=== PATIENT | female | born 1985 | race American Indian/Alaskan Native ===

== ENCOUNTER 2022-03-01 05:38 | Inpatient (IN) | payer OTHER ==
[2022-02-27 13:32] LABS: Hematocrit 33.4 % (30.3-42.9); Hemoglobin 11.1 gm/dl (10.1-14.3); Mean Corpuscular HGB Conc 33 % (30-34); Mean Corpuscular Volume 86 fl (79-97); Platelet Count 338 K/mm3 (140-440); Red Cell Distribution Width 15.4 % (13.2-15.2)
[~2022-03-01 05:38] MED LIST: BICITRA ORAL LIQD 30ML PO ONE; FAMOTIDINE 20 MG/2 ML INJ IV ONE; LACTATED RINGERS 1,000 ML IV SCH; METOCLOPRAMIDE 10 MG/2 ML INJ IV ONE; OXYTOCIN DRIP 30 UNITS/500 ML BAG IV SCH
--- NOTE | 2022-03-01 12:17 | Ultrasound Report ---
US OB LIMITED INDICATION: presentation. COMPARISON: None available. FINDINGS: A single live intrauterine is seen in transverse position with head to the maternal right. heart rate measures 149 bpm. No acute findings are identified by limited imaging. There is an i ncidental lower uterine segment probable fibroid measuring 10.1 x 7.0 x 8.9 cm. IMPRESSION: 1. Single live intrauterine in transverse presentation with head to the maternal righ t. 2. No acute findings. 3. Incidental probable uterine fibroid as above. Signer Name: Omari Scanlon MD Signed: 03/01/2022 12:12 PM Workstation Name: [id number]
--- NOTE | 2022-03-01 12:39 | History and Physical Report ---
History of Present Illness Date of examination: 03/01/22 Date of admission: 03/01/22 09:34 Chief complaint: Here for C/S History of present illness: Patient is a at 39w4d presenting for primary section secondary to breech presentation. Voices no complaints. +FM. Denies contractions, leakage of fluid, and vaginal bleeding. Past History Past Medical History: other (Anemia) Past Surgical History: other (gastric bypass) Family/Genetic History: none Social history: - Obstetrical History Expected Date of Delivery: 03/04/22 Actual Gestation: 39 Week(s) 4 Day(s) : 2 Para: 0 Hx # Term Pregnancies: 0 Number of Pregnancies: 0 Spontaneous Abortions: 1 Induced : 0 Number of Living Children: 0 Medications and Allergies Allergies Allergy/AdvReac Type Severity Reaction Status Date / Time No Known Allergies Allergy Unverified 02/21/22 18:40 Home Medications Medication Instructions Recorded Confirmed Last Taken Type Albuterol Sulfate [Proventil Hfa] 2 puff IH Q4H PRN 02/21/22 02/21/22 Unknown History Aspirin [Adult Aspirin] 81 mg PO DAILY 02/21/22 02/21/22 Unknown History Ferrous Sulfate [Feosol] 325 mg PO QDAY 02/21/22 02/21/22 Unknown History Folic Acid 1 mg PO DAILY 02/21/22 02/21/22 Unknown History Vit-Fe Fumar-FA [ 1 tab PO QDAY 02/21/22 02/21/22 Unknown History Vitamin] Active Meds: Active Medications Lactated Ringer's (Lactated Ringers) 1,000 mls @ 2,250 mls/hr IV PREOP AYSHA Stop: 03/01/22 20:57 Oxytocin/Sodium Chloride (Pitocin/Ns 30 Unit/500ml) 30 units in 500 mls @ 0 mls/hr IV TITR AYSHA; Protocol Cefazolin Sodium 3 gm/ Sodium (Chloride) 100 mls @ 100 mls/30 min IV PREOP NR; Protocol Stop: 03/10/22 23:59 Review of Systems All systems: negative - Vital Signs Vital signs: Vital Signs Temp Pulse Resp BP Pulse Ox 98.7 F 84 16 122/81 98 02/27/22 13:15 02/27/22 13:15 02/27/22 13:15 02/27/22 13:15 02/27/22 13:15 Temp Pulse Resp BP Pulse Ox 98.7 F 77 18 127/77 100 03/01/22 11:49 03/01/22 12:33 03/01/22 11:49 03/01/22 11:49 03/01/22 12:33 - Physical Exam Cardiovascular: Regular rate Lungs: Positive: Normal air movement Abdomen: Positive: soft Uterus: Positive: other (Gravid) Extremities: Positive: normal - Obstetrical FHR: category 1 Uterine Contraction Monitor Mode: External Results Result Diagrams: 02/27/22 13:15 All other labs normal. Assessment and Plan Patient s/p U/S and fetus transverse with head to maternal right Discussed will proceed with primary section Risks previously reviewed including pain, bleeding, infection, damage to surrounding tissues and structures, injury to baby, need for further procedures. Procedure and blood consents previously signed. Preop Hemoglobin 11.1 Ancef 3 g for preoperative antibiotics To OR for PCS - Patient Problems (1) 39 weeks gestation of Current Visit: Yes Status: Acute (2) malpresentation Current Visit: Yes Status: Acute (3) Fibroid uterus Current Visit: Yes Status: Acute
--- NOTE | 2022-03-01 12:49 | Anesthesia Day of Surgery ---
Anesthesia Day of Surgery - Day of Surgery Patient Examined: Yes Patient H&P Reviewed: Yes Patient is NPO: Yes Beta Blockers: No Cardiac Clearance: No Pulmonary Clearance: No Rey's Test: N/A
[2022-03-01] MEDS ORDERED: NalbUPHINE 10 MG/1 ML INJ IV PRN (12:50)
--- NOTE | 2022-03-01 12:50 | Anesthesia Consultation ---
Anesthesia Consult and Med Hx Date of service: 03/01/22 - Airway Anesthetic Teeth Evaluation: Good ROM Head & Neck: Adequate Mental/Hyoid Distance: Adequate Mallampati Class: Class I Intubation Access Assessment: Probably Good - Pulmonary Exam CTA: Yes - Cardiac Exam Cardiac Exam: RRR - Pre-Operative Health Status ASA Pre-Surgery Classification: ASA2 Proposed Anesthetic Plan: Spinal Nerve Block: TAP - Pulmonary Hx Smoking: No Hx Asthma: Yes (Albuterol for wheezing) Hx Sleep Apnea: No - Cardiovascular System Hx Hypertension: No Hx Heart Attack/AMI: No Hx Angina: No - Central Nervous System Hx Seizures: No Hx Psychiatric Problems: No - Gastrointestinal Hx Gastroesophageal Reflux Disease: No - Endocrine Hx Renal Disease: No Hx Liver Disease: No Hx Insulin Dependent Diabetes: No Hx Non-Insulin Dependent Diabetes: No Hx Hypothyroidism: No Hx Hyperthyroidism: No - Hematic Hx Anemia: No Hx Sickle Cell Disease: No - Other Systems Hx Alcohol Use: No Hx Cancer: No Hx Obesity: Yes - Additional Comments Anesthesia Medical History Comments: Gastric bypass
[2022-03-01] MEDS ORDERED: NALOXONE 0.4 MG/1 ML INJ IV PRN ×2 (13:00→17:27)
[2022-03-01] MEDS ORDERED: PROMETHAZINE 25 MG TAB PO PRN (13:00)
[2022-03-01] MEDS ORDERED: ONDANSETRON 4 MG/2 ML INJ IV PRN ×2 (13:00→17:27)
[2022-03-01] MEDS ORDERED: PROMETHAZINE 25 MG RECT SUPP PR PRN (13:00)
[2022-03-01] MEDS ORDERED: diphenhydrAMINE 50 MG/ML VIAL IV PRN (13:00)
[2022-03-01] MEDS ORDERED: BUPIVACAINE/PF (0.5%) 5 MG/1 ML 30 ML VIAL INFILTRATI ONE (14:03)
[2022-03-01] MEDS ORDERED: dexAMETHasone 20 MG/5 ML VIAL ONE (14:03)
[2022-03-01] MEDS ORDERED: ONDANSETRON 4 MG/2 ML INJ ONE (14:03)
[2022-03-01] MEDS ORDERED: KETOROLAC 30 MG/1 ML INJ ONE (14:03)
[2022-03-01] MEDS ORDERED: FAMOTIDINE 20 MG/2 ML INJ IV ONE (14:38)
[2022-03-01] MEDS ORDERED: BICITRA ORAL LIQD 30ML ONE (14:38)
[2022-03-01] MEDS ORDERED: METOCLOPRAMIDE 10 MG/2 ML INJ ONE (14:38)
[2022-03-01] MEDS ORDERED: ceFAZolin/Water 2 GM/20 ML 0 GM/0 ML SYRINGE IV ONE (14:39)
[2022-03-01] MEDS ORDERED: propofoL 200 MG/20 ML VIAL IV ONE (15:42)
[2022-03-01] MEDS ORDERED: SUCCINYLCHOLINE CHLORIDE 200 MG/10 ML INJ MDV ONE (15:42)
[2022-03-01] MEDS ORDERED: SODIUM CHLORIDE 0.9% IRR 1,500 ML BOTTLE IR ONE (15:50)
[2022-03-01] MEDS ORDERED: WATER FOR IRRIG STERILE 1,500 ML BOTTLE IR ONE (15:50)
[2022-03-01] MEDS ORDERED: METHYLERGONOVINE MALEATE 0.2 MG/ML VIAL IM ONE (16:03)
[2022-03-01] MEDS ORDERED: SODIUM CHLORIDE 0.9% 500 ML 500 ML IV ONE (16:11)
[2022-03-01] MEDS ORDERED: oxyCODONE /ACETAMINOPHEN 5-325MG TAB PO PRN (17:27)
[2022-03-01] MEDS ORDERED: WITCH HAZEL/ GLYCERIN PAD TP PRN (17:27)
[2022-03-01] MEDS ORDERED: LANOLIN/ZINC/DIMETHICONE (LANSINOH) 7 GM TP PRN (17:27)
[2022-03-01] MEDS ORDERED: SIMETHICONE 80 MG CHEW TAB PO PRN (17:27)
--- NOTE | 2022-03-01 17:46 | Operative Report ---
Operative Report Operative Report: Date of Procedure: February 26, 2022 Preoperative diagnosis: IUP @39 weeks, malpresentation, uterine fibroid Postoperative diagnosis: same, s/p stat section Procedure: Primary low transverse section Surgeon: Patricia Lemus MD Anesthesia: Spinal converted to GETA Complications: hemorrhage EBL: 2730 ml IV Fluids: 1700 ml ; 1 unit packed red blood cells UOP: 50 ml, clear urine at the end of procedure Indications: malpresentation Findings: 3430 g female infant in breech presentation with Apgars 3 & 8 Amniotic fluid clear Fallopian tubes normal in appearance bilaterally Ovaries normal in appearance bilaterally Procedure: The patient was taken to the operating room where spinal anesthesia was placed. Patient then complained of shortness of breath oxygen saturations noted to be in the 60s. High spinal suspected decision was made to convert to general anesthesia. 3 g Ancef was given prior to the procedure. She was then prepared with Betadine splash and draped in the usual sterile fashion in the dorsal supine position with a leftward tilt. A Pfannenstiel skin incision was made with the scalpel and carried and carried down to the fascia. The fascia was incised. The rectus muscles were then in the midline, and the peritoneum entered bluntly. The uterus was visualized and a fibroid was noted at the lower uterine segment. The decision was made to proceed with a high transverse uterine incision which was made with the scalpel. The infant was delivered via breech position. The was stimulated as the cord clamped and cut. The infant was handed off to the waiting pediatricians.The placenta was then removed; the uterus was cleared of all clots and debris. An Ramirez retractor was placed into the abdomen. The uterus was noted to be boggy and hemorrhage noted. The uterine incision was repaired with 0 vicryl in a running locked fashion to obtain ehemostasis. An imbrication layer was done. Multiple areas of bleeding were noted and multiple figure of eight sutures were placed giving excellent hemostasis. Surgicel was placed over the hysterotomy. The rectus muscle was reapproximated with 2-0 vicryl. The fascia was reapproximated with 0 vicryl in a running fashion. Subcutaneous layer reapproximated with interrupted sutures of 0 vicryl. The skin was closed with 4- 0 monocryl subcuticular stitch and the incision sealed with Dermabond. The patient tolerated the procedure well. Sponge, lap, needle counts correct X 2. The patient was taken to the recovery room in a stable condition.
--- NOTE | 2022-03-01 17:51 | Progress Note ---
Spinal Anesthesia Block - Spinal Anesthesia Block Start Time: 15:36 Stop Time: 15:42 Performed by:: BERNARDO PECK Procedure: Spinal anesthesia block is being performed for [c/s]. H&P, labs have been reviewed. Patient's questions and concerns have been answered. Informed consent has been performed. Timeout has was performed. Patient in sitting position on side of bed. Sterile prep and drape was performed. 3 mL 1% lidocaine skin wheal at L [3]-L [4]. Needle introducer advanced. 24-gauge spinal needle advanced, [+] CSF [-] blood. [Marcaine 10mg Precedex 5mcg] Spinal dose was given. All needles removed. Patient tolerated procedure well.
[2022-03-01] MEDS ORDERED: OXYTOCIN DRIP 30 UNITS/500 ML BAG IV SCH (18:00)
[2022-03-01] MEDS: HYDROmorphone 1 MG/1 ML INJ IV PRN (18:17)
[2022-03-01 19:11] LABS: Hematocrit 33.7 % (30.3-42.9); Hemoglobin 10.8 gm/dl (10.1-14.3)
[2022-03-01] MEDS: MORPHINE 4 MG/1 ML INJ IV PRN (21:22)
[2022-03-01] MEDS ORDERED: LACTATED RINGERS 1,000 ML IV SCH (22:00)
[2022-03-02] MEDS: MORPHINE 4 MG/1 ML INJ IV PRN ×2 (01:42→09:02)
[2022-03-02] MEDS: HYDROmorphone 1 MG/1 ML INJ IV PRN (04:40)
[2022-03-02 05:14] LABS: Hematocrit 31.4 % (30.3-42.9); Hemoglobin 10.4 gm/dl (10.1-14.3)
--- NOTE | 2022-03-02 08:48 | Progress Note ---
Assessment and Plan A: 36 y.o. s/p primary , POD #1. - Patient Problems (1) delivery delivered Current Visit: Yes Status: Acute Plan to address problem: Continue with care. Advance diet as tolerated. Encourage ambulation. Encourage IS use. Percocet increased to 2 tablets when pt is able to take PO pain medication. RN to administer pain medication IV as of this note. If patient remains stable and pain is well controlled can be discharged home on 03/02. Subjective - Subjective Date of service: 03/02/22 Principal diagnosis: s/p primary , PPH Interval history: Pt states that she feels like she is getting an yeast infection d/t antibiotic administration. Pt also states that she is having some pain and feels dizzy when ambulating. Discussed with patient the need to ask for assistance when getting out of bed and when walking. RN taking care of patient serna of need for pain me dication. Patient reports: dizzy ambulation, pain poorly controlled, other (Yeast infection) : doing well Objective - Vital Signs Latest vital signs: Vital Signs Temp Pulse Resp BP BP Pulse Ox Pulse Ox 03/02/22 05:10 18 03/02/22 04:45 98.9 F 87 18 139/82 97 03/02/22 04:40 18 03/02/22 01:42 18 03/02/22 00:40 97.9 F 92 H 18 134/85 100 03/01/22 21:22 18 03/01/22 19:47 98.0 F 86 18 146/88 98 03/01/22 19:30 98 03/01/22 18:50 97.7 F 89 20 133/78 99 03/01/22 18:35 94 H 20 126/82 99 03/01/22 18:20 90 22 130/82 99 03/01/22 18:05 99 H 22 119/74 99 03/01/22 17:50 102 H 22 119/77 98 03/01/22 17:40 100 H 24 125/76 98 03/01/22 17:35 102 H 20 126/78 98 03/01/22 17:34 97.7 F 99 H 20 132/82 03/01/22 14:34 95 H 99 03/01/22 14:29 89 99 03/01/22 14:24 86 98 03/01/22 14:19 85 100 03/01/22 14:14 84 100 03/01/22 14:09 81 100 03/01/22 14:04 79 99 03/01/22 13:59 87 98 03/01/22 13:54 87 99 03/01/22 13:49 84 100 03/01/22 13:43 85 100 03/01/22 13:38 82 100 03/01/22 13:33 77 100 03/01/22 13:28 82 98 03/01/22 13:25 75 128/80 03/01/22 13:23 78 98 03/01/22 13:18 82 97 03/01/22 13:13 85 99 03/01/22 13:08 75 100 03/01/22 13:05 98 03/01/22 13:03 81 98 03/01/22 12:58 84 97 03/01/22 12:53 80 98 03/01/22 12:48 90 97 03/01/22 12:43 74 97 03/01/22 12:38 83 99 03/01/22 12:33 77 100 03/01/22 12:28 81 100 03/01/22 12:23 78 99 03/01/22 12:18 87 99 03/01/22 12:13 84 99 03/01/22 12:08 81 100 03/01/22 12:03 85 99 03/01/22 11:58 98 H 100 03/01/22 11:53 96 H 100 03/01/22 11:49 98.7 F 91 H 18 127/77 99 03/01/22 11:48 90 100 03/01/22 11:44 90 127/77 03/01/22 11:43 94 H 99 Intake and Output 03/01/22 03/02/22 03/02/22 22:59 06:59 14:59 Intake Total 1900 Output Total 200 800 Balance 1700 -800 Intake: IV 1900 Output: Urine 200 800 Indwelling Catheter 800 Other: Total, Output Amount 300 Estimated Blood Loss 2,703 - Exam Cardiovascular: Present: Regular rate Lungs: Present: Normal air movement Abdomen: Present: normal appearance, soft, other (Hypoactive bowel sounds. ) Vulva: both: normal Uterus: Present: normal, firm Extremities: Present: normal Incision: Present: normal, dry, intact, other Comments: No s/sx of yeast infection seen. - Labs Labs: Abnormal lab results 03/01/22 Range/Units 12:10 Crossmatch See Detail
[2022-03-02] MEDS: ceFAZolin/NS 1 GM/50 ML 1 GM/50 ML BAG IV SCH ×2 (09:02)
[2022-03-02] MEDS: IBUPROFEN 800 MG TAB PO SCH ×7 (09:02→23:19)
--- NOTE | 2022-03-02 10:00 | Post Anesthesia Evaluation ---
- Post Anesthesia Evaluation Patient Participated: Yes Airway Patent: Yes Stable Respiratory Function: Yes Nausea/Vomiting: No Temp > 96.8F: Yes Pain Manageable: Yes Adequeate Hydration: Yes Anesthesia Complications: No Block Receding Appropriately: Yes Patient on Ventilator: No
[2022-03-02] MEDS ORDERED: FLUCONAZOLE 200 MG TAB PO ONE (13:42)
[2022-03-02] MEDS: oxyCODONE /ACETAMINOPHEN 5-325MG TAB PO PRN ×2 (13:48→18:55)
[2022-03-03] MEDS: oxyCODONE /ACETAMINOPHEN 5-325MG TAB PO PRN ×4 (02:01→21:29)
[2022-03-03] MEDS: IBUPROFEN 800 MG TAB PO SCH ×4 (05:43→23:49)
--- NOTE | 2022-03-03 13:27 | Discharge Summary ---
Providers - Providers Date of Admission: 03/01/22 09:34 Date of discharge: 03/03/22 Attending physician: PIOTR RAMOS MD Primary care physician: PIOTR RAMOS MD Hospitalization Reason for admission: section, IUP at term Delivery: Procedure: section Procedure details: See dictated operative note for details Episiotomy: none Laceration: none Incision: normal, dry, intact Other procedures: none complications: none Discharge diagnosis: IUP at term delivered baby: female Hospital course: Patient was admitted for primary. Patient underwent the procedure without complications. Her post operative course was benign she was afebrile throughout. Patient postoperative day 1 hematocrit was in an acceptable range. Patient had no orthostatic symptoms. Patient was tolerating regular diet and voiding without difficulty at time of discharge. Patient incision was healing well without evidence of infection. Patient plans to breast-feed and desires no contraceptive due to same-sex marriage. Condition at discharge: Good Disposition: 01 HOME / SELF CARE / HOMELESS - Discharge Diagnoses (1) 39 weeks gestation of Status: Acute (2) delivery delivered Status: Acute (3) malpresentation Status: Acute (4) Fibroid uterus Status: Acute Plan - Discharge Medications Prescriptions: Docusate Sodium [Colace] 100 mg PO BID #60 capsule Ferrous Sulfate [Feosol 325 MG tab] 325 mg PO QDAY #30 tablet Ibuprofen [Motrin 800 MG tab] 800 mg PO Q8HR #30 tablet oxyCODONE /ACETAMINOPHEN [Percocet 5/325] 1 tab PO Q6HR PRN #20 tablet PRN Reason: Pain Vit-Fe Fumar-FA [ Vitamin] 1 tab PO QDAY #30 tablet - Provider Discharge Summary Activity: routine, no sex for 6 weeks, no strenuous exercise Diet: routine Instructions: routine Additional instructions: [] Smoking cessation referral if applicable(refer to patient education folder for contact #) [] Refer to [facility] Booklet Call your doctor immediately for: * Fever > 100.5 * Heavy vaginal bleeding ( >1 pad per hour) * Severe persistent headache * Shortness of breath * Reddened, hot, painful area to leg or breast * Drainage or odor from incision. * Keep incision clean and dry at all times and follow doctor's instructions regarding bathing/showering - Follow up plan Follow up: PIOTR RAMOS MD [Primary Care Provider] - 7 Days
[2022-03-04] MEDS: IBUPROFEN 800 MG TAB PO SCH ×2 (05:46→13:00)
[2022-03-04] MEDS: oxyCODONE /ACETAMINOPHEN 5-325MG TAB PO PRN (09:40)
--- NOTE | 2022-03-04 12:05 | Event Note ---
Date: 03/04/22 Patient is discharged with post phone yesterday due to requiring observation for elevated bilirubin. Will discharge today
[2022-03-04 19:13] VITALS: BP 123/82
== END 2022-03-04 14:55 | disposition home or self-care (01) | DRG 765 ==
LOC: APU 09:34 → OB 20:34
PROVIDERS: ADMIT Student in an Organized Health Care Education/Training Program; ATTEND Student in an Organized Health Care Education/Training Program
PROC: 10D00Z1 Extraction of Products of Conception, Low, Open Approach (ICD-10-PCS; principal; 2022-02-26)
PROC: 30233N1 Transfusion of Nonautologous Red Blood Cells into Peripheral Vein, Percutaneous Approach (ICD-10-PCS; 2022-03-01)
DX: O32.1XX0 Maternal care for breech presentation, not applicable or unspecified (principal); O72.1 Other immediate postpartum hemorrhage; Z3A.39 39 weeks gestation of pregnancy; Z37.0 Single live birth; Z20.822 Contact with and (suspected) exposure to COVID-19; O34.13 Maternal care for benign tumor of corpus uteri, third trimester; D25.9 Leiomyoma of uterus, unspecified; O99.52 Diseases of the respiratory system complicating childbirth; J45.909 Unspecified asthma, uncomplicated; Z79.82 Long term (current) use of aspirin
CPT/HCPCS: 36415; 59025; 76815; 85014; 85018; 85027; 85461; 86592; 86850; 86900; 86901; 86920; G0378; J3490; J7120; J7121; J0330; J0690; J1100; J1170; J1885; J2270; J2405; J2590; J2704; J2765; P9016; U0003